=== PATIENT | male | born 1965 | race Two or more races ===

== ENCOUNTER 2016-08-28 13:32 | Emergency (ER) | payer OTHER ==
[2016-08-28 13:46] VITALS: PULSE 82; BMI 23.7
--- NOTE | 2016-08-28 13:50 | PDOC ---
History of Present Illness - General Chief Complaint: Pain, Acute Stated Complaint: Flank pain, blood in urine Time Seen by Provider: 08/28/16 13:47 History Source: Patient Exam Limitations: No Limitations - History of Present Illness Initial Comments: 50 year old male with no significant past medical history presenting with 1 week of intermittent left sided flank pain and associated blood in his urine. 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 Patent denies fever, chills, chest pain, SOB and only notices the blood in his urine following incidents of cramping. Patient last had symptoms yesterday, 4x, while at work and only came in today because he is leaving tomorrow for a two week vacation in [place]. Patient denies ever having this problem before but admitted he had an abnormal UA last year showing blood in his urine and was given a referral by his PCP (Dr. Alexander at [facility]) to be seen by a urologist, however, he never followed up. Past History - Past Medical History Allergies/Adverse Reactions: Allergies Allergy/AdvReac Type Severity Reaction Status Date / Time No Known Allergies Allergy Verified 08/28/16 13:46 Home Medications: Ambulatory Orders Naproxen [Naprosyn -] 500 mg PO BID PRN #14 tablet 08/28/16 Oxycodone HCl/Acetaminophen [Percocet 5-325 mg Tablet -] 1 tab PO TID PRN #12 tablet MDD 3 08/28/16 Other medical history: denies - Surgical History Other Surgical History: 08/28/16 15:56 denies - Psycho/Social/Smoking Cessation Hx Suicidal Ideation: No Smoking History: Never smoked Information on smoking cessation initiated: No Hx Alcohol Use: No Drug/Substance Use Hx: No Substance Use Type: None Review of Systems - Review of Systems Able to Perform ROS?: Yes Constitutional: No: Chills, Diaphoresis, Fever HEENTM: No: Recent change in vision, Ear Pain, Hearing Loss Respiratory: Yes: Cough. No: Shortness of Breath Cardiac (ROS): No: Chest Pain ABD/GI: Yes: See HPI, Abdominal cramping. No: Constipated, Diarrhea, Nausea, Vomiting : Yes: Flank Pain, Hematuria. No: Burning, Dysuria, Discharge, Frequency, Urgency Musculoskeletal: No: Back Pain, Muscle Pain Neurological: No: Headache, Dizziness All Other Systems: Reviewed and Negative *Physical Exam - Vital Signs Last Vital Signs Temp Pulse Resp BP Pulse Ox 98.1 F 82 18 134/85 100 08/28/16 13:44 08/28/16 13:44 08/28/16 13:44 08/28/16 13:44 08/28/16 13:44 ED Treatment Course - LABORATORY CBC & Chemistry Diagram: 08/28/16 14:56 08/28/16 14:56 - RADIOLOGY Radiograph Interpretation: 08/28/16 16:23 CT scan of the abdomen pelvis without oral and intravenous contrast Read By: Malcolm Chris MD IMPRESSION: 1.1 x 1 cm obstructing stone in the left renal pelvis with mild left renal hydronephrosis. There is edema/stranding around the renal pelvis and mild dilatation of the proximal left ureter without evidence of a ureteral stone. Small fat-containing umbilical hernia. Mild mesenteric stranding/edema mainly in the mid abdomen with multiple mesenteric lymph nodes in right side of the abdomen measuring up to 1.5 x 1 cm which are nonspecific. Clinical correlation is recommended to rule out mesenteric adenitis versus the possibility of lymphoproliferative disorder Enlarged prostate gland Medical Decision Making - Medical Decision Making History of left-sided intermittent, crampy flank pain and blood in urine for one week and an abnormal UA one year ago positive for hematuria concerning for nephrolithiasis or other urologic pathology. Ddx nephrolithiasis, pyelonephritis, bladder cancer Patient is 50 yo with no history of smoking and benign abdominal exam resulting in a low suspicion for bladder cancer. History most consistent with nephrolithiasis but inconsistences including pain severity, persistent hematuria for one year and intermittent course also concerning for another urologic pathology. Evaluate with basic labs: UA, CBC, CMP and followup with spiral CT if UA positive for blood. 08/28/16 15:00 Urine clear and negative for nitrates and leukocyte esterase lowering concern for UTI but positive for blood with 136 RBC/hpf with concern for nephrolithiasis. Followup with spiral CT 08/28/16 16:[address] demonstrated 1.1 x 1 cm obstructing stone in the left renal pelvis with mild left renal hydronephrosis and stranding/edema around the renal pelvis. Patient is currently pain free, urinating, with a CR of 1.0. Results were discussed with patient related to patients planned trip and urology was consulted regarding recommendations related to patient dispo. CT also significant for small fat-containing umbilical hernia and mild mesenteric stranding/edema with multiple mesenteric lymph nodes. Results were discussed with the patient and he was given copy of CT report and advised to follow up with his PCP. Patient indicated his understanding and agreement with this plan. *DC/Admit/Observation/Transfer Diagnosis at time of Disposition: Nephrolithiasis, Hematuria, Mesenteric adenitis - Discharge Dispostion Disposition: HOME Admit: No - Prescriptions Prescriptions: Naproxen [Naprosyn -] 500 mg PO BID PRN #14 tablet PRN Reason: Pain Oxycodone HCl/Acetaminophen [Percocet 5-325 mg Tablet -] 1 tab PO TID PRN #12 tablet MDD 3 PRN Reason: Severe Pain - Referrals Referrals: Shaji Mendiola MD [Primary Care Provider] - Jj Gonsalez MD [Staff Physician] - - Patient Instructions Printed Discharge Instructions: DI for Kidney Stones, Abdominal Hernia Additional Instructions: Thank you for coming to the emergency department. It has been my pleasure assisting you today. I hope you were satisfied with the care we provided you today. It is important that you follow up with the urologist (Dr. Jj Gonsalez ) tomorrow as we discussed. He asked that you call his office in the morning ( [phone]) and make an appointment to see him tomorrow. Also, please follow up with your primary care physician to discuss the other findings from the CT. - Attestations Physician Attestion: 08/28/16 17:41 I, Dr. Moises Haley, attest that this document has been prepared under my direction and personally reviewed by me in its entirety. I further attest, that it accurately reflects all work, treatment, procedures and medical decision -making performed by me.
[2016-08-28 14:34] LABS: URINE APPEARANCE CLEAR; URINE BILIRUBIN NEGATIVE (NEGATIVE); URINE COLOR LTYELLOW; URINE GLUCOSE (UA) NEGATIVE (NEGATIVE); URINE KETONE NEGATIVE (NEGATIVE); URINE LEUK ESTERASE NEGATIVE (NEGATIVE); URINE NITRITE NEGATIVE (NEGATIVE); URINE UROBILINOGEN NEGATIVE E.U./dl (0.2-1.0)
[2016-08-28 14:45] LABS: URINE BLOOD 2+ (NEGATIVE); URINE PROTEIN 1+ (NEGATIVE)
[2016-08-28 14:49] LABS: URINE MUCUS RARE; URINE RBC 136 /hpf (0-3); URINE WBC <1 /hpf (3-5)
[2016-08-28 15:32] LABS: MCH 30.5 pg (25.7-33.7); MCHC 32.7 g/dl (32.0-35.9); MEAN CELL VOLUME 93.1 fl (80-96); MEAN PLT VOLUME 7.8 fl (7.5-11.1); PLATELET COUNT 192 K/MM3 (134-434); RDW 12.5 % (11.9-15.9); WHITE BLOOD COUNT 6.9 K/mm3 (4.0-10.0)
--- NOTE | 2016-08-28 15:44 | PDOC ---
Attending Attestation - Resident Resident Name: Moises Haley - ED Attending Attestation I have performed the following: I have examined & evaluated the patient, The case was reviewed & discussed with the resident, I agree w/resident's findings & plan, Exceptions are as noted - HPI HPI: 08/28/16 15:33 50 yo M presenting to the ER with a complaint of left flank pain intermittent hematuria Pain is the worse when he is working outside He then notes left flank pain He the notes hematuria He was actually seen by his PMD for hematuria, asked to follow up but did not Pt is concerned that his pain will worsen and he has an international trip 08/28/16 15:44 - Physicial Exam PE: 08/28/16 15:44 ON examination RRR Lungs CTA Left abdominal pain No guarding No rebound - Medical Decision Making 08/28/16 15:48 Will do labs Will do CT Will do UA Will re assess 08/28/16 17:54 Laboratory Tests 08/28/16 08/28/16 08/28/16 14:20 14:56 14:56 Hgb 15.5 Hct 47.3 BUN 16 Creatinine 1.0 Urine Blood 2+ H Urine Nitrite Negative Urine RBC 136 Urine WBC <1 CT: left renal pelvis stone Rechschaffen contacted He will see this patient in the office tomorrow Pt given results - CT and labs Return to the ER for severe pain Pain medications sent to the pharmacy if pt develops pain Clinical impression: renal pelvis stone
[2016-08-28 15:59] LABS: ALBUMIN 4.1 g/dl (3.4-5.0); ALK PHOS 119 U/L (45-117); ANION GAP 5 (8-16); BILIRUBIN,TOTAL 0.5 mg/dL (0.2-1.0); CALCIUM 9.6 mg/dL (8.5-10.1); CO2 30 mmol/L (21-32); GLUCOSE,RANDOM 94 mg/dL (74-106); SGOT/AST 31 U/L (15-37); SGPT/ALT 55 U/L (12-78); TOT PROT 7.6 g/dl (6.4-8.2)
--- NOTE | 2016-08-28 17:47 | PDOC ---
History of Present Illness - General Chief Complaint: Pain, Acute Stated Complaint: Flank pain, blood in urine Time Seen by Provider: 08/28/16 13:47 History Source: Patient Exam Limitations: No Limitations - History of Present Illness Initial Comments: 08/28/16 17:56 patient is a 50 year old male with no significant past medical history presenting with one week of intermittent left sided flank pain and associated bloody urine. Pain is described as crampy, 5/10 in severity, originating in the LLQ and radiating to the back with blood presenting in the urine only following an incident of abdominal pain and otherwise clear. 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 Patient last experienced symptoms yesterday, x4, and endorsed coming into the ED today only because he is leaving in two weeks for vacation in [place] and wanted to have it checked. Patient endorses a mild residual cough from a URI a week ago but denies fever, chills, SOB and chest pain. Patient is seen by Dr. Alexander at [facility] in [place] for annual checkups and endorsed getting a urology referral a year ago for abnormal blood in his urine but denies following through with the appointment. Past History - Past Medical History Allergies/Adverse Reactions: Allergies Allergy/AdvReac Type Severity Reaction Status Date / Time No Known Allergies Allergy Verified 08/28/16 13:46 Home Medications: Ambulatory Orders Naproxen [Naprosyn -] 500 mg PO BID PRN #14 tablet 08/28/16 Oxycodone HCl/Acetaminophen [Percocet 5-325 mg Tablet -] 1 tab PO TID PRN #12 tablet MDD 3 08/28/16 Other medical history: denies - Surgical History Other Surgical History: 08/28/16 18:05 denies - Psycho/Social/Smoking Cessation Hx Suicidal Ideation: No Smoking Status: No Smoking History: Never smoked Information on smoking cessation initiated: No Hx Alcohol Use: No Drug/Substance Use Hx: No Substance Use Type: None Comments:: 08/31/16 13:31 Single, Sexually active, no history of STI Review of Systems - Review of Systems Able to Perform ROS?: Yes Is the patient limited Swiss proficient: No Constitutional: No: Chills, Fever HEENTM: No: Eye Pain, Recent change in vision, Ear Pain, Hearing Loss Respiratory: Yes: Cough. No: Shortness of Breath Cardiac (ROS): No: Chest Pain ABD/GI: Yes: Abdominal cramping. No: Diarrhea, Nausea, Vomiting : Yes: Flank Pain, Hematuria. No: Burning, Dysuria, Frequency Musculoskeletal: No: Back Pain, Muscle Pain All Other Systems: Reviewed and Negative *Physical Exam - Vital Signs Last Vital Signs Temp Pulse Resp BP Pulse Ox 98.1 F 82 18 134/85 100 08/28/16 13:44 08/28/16 13:44 08/28/16 13:44 08/28/16 13:44 08/28/16 13:44 - Physical Exam General Appearance: Yes: Appropriately Dressed. No: Apparent Distress HEENT: positive: EOMI, MURALI, Normal Voice Neck: negative: Tender, Lymphadenopathy (R), Lymphadenopathy (L) Respiratory/Chest: positive: Lungs Clear, Normal Breath Sounds. negative: Respiratory Distress Cardiovascular: positive: Regular Rhythm, Regular Rate. negative: JVD Vascular Pulses: Carotid (R): 3+, Carotid (L): 3+, Dorsalis-Pedis (R): 3+, Doralis-Pedis (L): 3+ Gastrointestinal/Abdominal: positive: Normal Bowel Sounds. negative: Tender, Pulsatile Mass Musculoskeletal: positive: Normal Inspection. negative: CVA Tenderness Extremity: positive: Normal Capillary Refill Integumentary: positive: Normal Color ED Treatment Course - LABORATORY CBC & Chemistry Diagram: 08/28/16 14:56 08/28/16 14:56 - ADDITIONAL ORDERS Additional order review: Laboratory Results 08/28/16 08/28/16 14:56 14:20 Sodium 142 Potassium 4.0 Chloride 107 Carbon Dioxide 30 Anion Gap 5 L BUN 16 Creatinine 1.0 Creat Clearance w eGFR > 60 Random Glucose 94 Calcium 9.6 Total Bilirubin 0.5 AST 31 ALT 55 Alkaline Phosphatase 119 H Total Protein 7.6 Albumin 4.1 Urine Color Ltyellow Urine Appearance Clear Urine pH 5.0 Urine Protein 1+ H Urine Glucose (UA) Negative Urine Ketones Negative Urine Blood 2+ H Urine Nitrite Negative Urine Bilirubin Negative Urine Urobilinogen Negative Ur Leukocyte Esterase Negative Urine RBC 136 Urine WBC <1 Urine Mucus Rare 08/28/16 14:56 RBC 5.08 MCV 93.1 MCHC 32.7 RDW 12.5 MPV 7.8 - RADIOLOGY Radiology Studies Ordered: Category Date Time Status SPIRAL- RENAL-STONE CT [CT] Stat CT Scan 08/28/16 15:00 Completed Radiograph Interpretation: 08/28/16 18:10 CT scan of the abdomen pelvis without oral and intravenous contrast Read By: Malcolm Chris MD IMPRESSION: 1.1 x 1 cm obstructing stone in the left renal pelvis with mild left renal hydronephrosis. There is edema/stranding around the renal pelvis and mild dilatation of the proximal left ureter without evidence of a ureteral stone. Small fat-containing umbilical hernia. Mild mesenteric stranding/edema mainly in the mid abdomen with multiple mesenteric lymph nodes in right side of the abdomen measuring up to 1.5 x 1 cm which are nonspecific. Clinical correlation is recommended to rule out mesenteric adenitis versus the possibility of lymphoproliferative disorder. Enlarged prostate gland. 08/31/16 13:44 Medical Decision Making - Medical Decision Making 08/28/16 17:45 Patient presenting with a history of intermittent flank pain and hematurea for one week and an abnormal UA one year ago most consistent for nephrolithiasis. Ddx includes aortic aneurism, GI obstruction, obstructive hydrolithias, pyelonephritis, bladder carcinoma, and nephroliathiasis. Patient is 50 years old with no history of smoking lowering suspicion for carcinoma. History and vital signs not concerning for infection. No tenderness or palpable mass on physical exam and location of pain less concerning for obstruction or aneurism. The history and physical exam are most consistent for nephrolithiasis but with some inconsistencies. Evaluate with UA and a follow up helical CT if UA positive for blood. UA negative for nitrates and leukocyte esterase lowering the suspicion for infection but positive for blood with 137 RBC/hpf increasing the likely-bautista of nephrolithiasis or other urilogic pathology supporting helical CT for additional evaluation. CT significant for 1.1 x 1 cm obstructing stone in the left renal pelvis with mild left renal hydronephrosis. Consult urology. Dr. Bai was paged @ 16:08 and 16:47 and the manager membership eventually reached Dr. Jj Gonsalez who agreed to see the patient in his office in the morning. Discussed the disgnosis, labs and CT results with the patient who agreed with the plan to followup with Dr. Gonsalez in the morning for evaluation of his kidney stone and his PCP as soon as possible to discuss the other findings on the CT. Patient was given a copy of the CT report and confirmed that all of his questions had been answered. *DC/Admit/Observation/Transfer Diagnosis at time of Disposition: Nephrolithiasis, Hematuria, Mesenteric adenitis - Discharge Dispostion Disposition: HOME - Prescriptions Prescriptions: Naproxen [Naprosyn -] 500 mg PO BID PRN #14 tablet PRN Reason: Pain Oxycodone HCl/Acetaminophen [Percocet 5-325 mg Tablet -] 1 tab PO TID PRN #12 tablet MDD 3 PRN Reason: Severe Pain - Referrals Referrals: Jj Gonsalez MD [Staff Physician] - Shaji Mendiola MD [Primary Care Provider] - - Patient Instructions Printed Discharge Instructions: DI for Kidney Stones, Abdominal Hernia Additional Instructions: Thank you for coming to the emergency department. It has been my pleasure assisting you today. I hope you were satisfied with the care we provided you today. It is important that you follow up with the urologist (Dr. Jj Gonsalez ) tomorrow as we discussed. He asked that you call his office in the morning ( [phone]) and make an appointment to see him tomorrow. Also, please follow up with your primary care physician to discuss the other findings from the CT. - Post Discharge Activity - Attestations Physician Attestion: 08/28/16 17:45 I, Dr. Moises Haley, attest that this document has been prepared under my direction and personally reviewed by me in its entirety. I further attest, that it accurately reflects all work, treatment, procedures and medical decision -making performed by me.
[2016-08-28 17:52] VITALS: BP 138/78; TEMP 98.2
== END 2016-08-28 17:30 | disposition home or self-care (01) ==
LOC: JER 13:32
DX: N13.2 Hydronephrosis with renal and ureteral calculous obstruction (principal); I88.0 Nonspecific mesenteric lymphadenitis
CPT/HCPCS: 36415; 74176; 80053; 81003; 81015; 85027; 99283-25

== ENCOUNTER 2018-07-28 11:24 | Day surgery (SDC) | payer OTHER | END 2018-07-28 15:58 | disposition home or self-care (01) | LOC: JASU-SURG 11:24 ==

== ENCOUNTER 2019-10-05 05:31 | Day surgery (SDC) | payer OTHER ==
[2019-10-01 10:11] VITALS: BMI 24.0
[2019-10-05] MEDS ORDERED: MIDAZOLAM HCL 2 MG/2 ML SINGLE DOSE VIAL ONE (09:21)
[2019-10-05] MEDS ORDERED: PROPOFOL 20 ML ONE (09:21)
[2019-10-05] MEDS ORDERED: DEXAMETHASONE SOD PHOSPHATE 4 MG/1 ML VIAL ONE (09:40)
[2019-10-05] MEDS ORDERED: ESMOLOL HCL 100,000 MCG/10 ML VIAL ONE (09:42)
[2019-10-05] MEDS ORDERED: METOPROLOL TARTRATE 5 MG/5 ML VIAL ONE (09:42)
[2019-10-05] MEDS ORDERED: PHENYLEPHRINE HCL 10 MG/1 ML SINGLE DOSE VIAL ONE (09:45)
[2019-10-05] MEDS ORDERED: IOHEXOL 300 MG/ML INFUS..BTL IJ ONE ×2 (09:50)
--- NOTE | 2019-10-05 10:23 | OP ---
Operative Note - Note: Operative Date: 10/05/19 Pre-Operative Diagnosis: left ureteral stone Operation: cystoscopy/left retrograde pyelogram/left ureteroscopic laser lithotripsy/left ureteroscopic stone basketing/left ureteral stent placement Findings: 8+ mm left ureteral stone Post-Operative Diagnosis: Same as Pre-op Surgeon: Jarrod Rodriguez Anesthesia: General Specimens Removed: left ureteral stone Drains & Tubes with Location: 08/20 left ureteral stent Operative Report Dictated: Yes
[2019-10-05] MEDS ORDERED: oxyCODONE HCL 5 MG TABLET PO PRN (10:37)
[2019-10-05] MEDS ORDERED: ONDANSETRON 4 MG/2 ML VIAL IVPUSH PRN (10:37)
[2019-10-05] MEDS ORDERED: LACTATED RINGERS SOLUTION 1,000 ML IV SCH (10:45)
--- NOTE | 2019-10-05 11:37 | EKG ---
Test Reason : Blood Pressure : / mmHG Vent. Rate : 084 BPM Atrial Rate : 065 BPM P-R Int : 158 ms QRS Dur : 146 ms QT Int : 450 ms P-R-T Axes : 055 -39 -08 degrees QTc Int : 531 ms SINUS RHYTHM WITH PREMATURE ATRIAL COMPLEXES LEFT AXIS DEVIATION /LAFB RIGHT BUNDLE BRANCH BLOCK VOLTAGE CRITERIA FOR LEFT VENTRICULAR HYPERTROPHY ABNORMAL ECG NO PREVIOUS ECGS AVAILABLE Confirmed by Mis Aguilar ([id number]) on 10/05/2019 11:36:46 AM Referred By: Jarrod Rodriguez Confirmed By:Mis Aguilar
[2019-10-05 12:42] VITALS: PULSE 68; TEMP 97.7
[2019-10-05 13:36] VITALS: BP 140/98
--- NOTE | 2019-10-05 18:37 | OP ---
DATE OF OPERATION: 10/05/2019 PREOPERATIVE DIAGNOSIS: Left ureteral stone. POSTOPERATIVE DIAGNOSIS: Left ureteral stone. PROCEDURE: Cystoscopy, left retrograde pyelogram, left ureteroscopic laser lithotripsy, left ureteroscopic stone basketing, and left ureteral stent placement. ATTENDING: Stephanie Rodriguez MD. ANESTHESIA: Fractional. DESCRIPTION OF PROCEDURE: The patient was brought in the operating room, placed in a supine position on the operating room table. The patient was noted to have an 8+ mm distal left ureteral stone on the CAT scan performed 1 week prior to the operation. A risks and benefits had been reviewed with the patient. Patient understands these risks and benefits and chooses to undergo the procedure. The patient was brought in the operating room, placed in a supine position on the operating room table. The anesthesia and preoperative antibiotics were then administered. The patient was then prepped and draped in the usual sterile manner and placed in the dorsal lithotomy position. At this point, the patient underwent a cystoscopy. No evidence of stones were noted within the bladder. There were also no neoplasms. A retrograde pyelogram shows an 8+ mm defect in the distal left ureter. A wire is passed proximally. At this point, ureteroscopy was performed. A holmium laser was utilized, and the holmium was used to fragment the stone. Also the fragments were removed and sent for analysis at the pathology department. There were no complications were noted. The patient tolerated the procedure very well. DISPOSITION: The patient was sent to the recovery room. STEPHANIE WU M.D. [id number]
--- NOTE | 2019-10-06 14:01 | PATH ---
Surgical Pathology Report Patient Name: JUNIOR ANUP Med. Rec. #: [id number] /Age/Gender: 1965 (Age: 54) / M Account: [id number] Location: [facility] SURGICAL Taken: 10/05/2019 Received: 10/05/2019 Reported: 10/06/2019 Physicians: Jarrod Rodriguez Specimen(s) Received LEFT RENAL STONE Clinical History Left renal stone Final Diagnosis RENAL STONE, LEFT, LASER LITHOTRIPSY: RENAL CALCULI. MACROSCOPIC DIAGNOSIS. Electronically Signed Sarahy Still M.D. Gross Description Received fresh labeled "left renal stone," is a 0.5 cm in greatest dimension jacobs, irregular calculus which is sent for chemical analysis. /10/05/2019 saudi/10/05/2019
[2019-10-17 15:26] LABS: SIZE 4X4
[2019-10-17 15:27] LABS: CA OXALATE MONOHYDR. 20; PHOTO SEE FILE; WEIGHT 32
== END 2019-10-05 13:38 | disposition home or self-care (01) ==
LOC: JASU-SURG 05:31
PROVIDERS: ATTEND Urology
PROC: BT1FYZZ Fluoroscopy of Left Kidney, Ureter and Bladder using Other Contrast (ICD-10-PCS; 2019-10-05)
PROC: 0TC78ZZ Extirpation of Matter from Left Ureter, Via Natural or Artificial Opening Endoscopic (ICD-10-PCS; principal; 2019-10-05 09:00)
PROC: 0T778DZ Dilation of Left Ureter with Intraluminal Device, Via Natural or Artificial Opening Endoscopic (ICD-10-PCS; 2019-10-05 09:00)
DX: N20.1 Calculus of ureter (principal)
CPT/HCPCS: 36415; 76000-TC-FY; 82360; 88300-TC; 93005; 93010; 94760

== ENCOUNTER 2020-03-01 17:10 | Emergency (ER) | payer OTHER ==
[2020-03-01 17:57] VITALS: BMI 261.8
[2020-03-01] MEDS ORDERED: ASPIRIN 81 MG CHEWABLE TABLETS PO ONE (18:49)
[2020-03-01] MEDS ORDERED: ASPIRIN 81 MG CHEWABLE TABLETS ONE (19:35)
[2020-03-01 19:44] LABS: BASO % 0.3 % (0-2.0); EOS % 1.9 % (0-4.5); HEMOGLOBIN 14.9 GM/dL (11.7-16.9); MCH 30.5 pg (25.7-33.7); MEAN CELL VOLUME 92.3 fl (80-96); MEAN PLT VOLUME 7.7 fl (7.5-11.1); MONO % 6.8 % (3.8-10.2); PLATELET COUNT 220 K/MM3 (134-434); RBC 4.87 M/mm3 (4.00-5.60); RDW 12.4 % (11.9-15.9)
[2020-03-01 20:00] LABS: INR 1.03 (0.83-1.09); PROTHROMBIN TIME (PATIENT) 12.5 SEC (9.7-13.0)
[2020-03-01] MEDS ORDERED: KETOROLAC TROMETHAMINE 30 MG/1 ML VIAL IM ONE (20:00)
[2020-03-01 20:02] LABS: ACTIVATED PTT 33.7 SECONDS (25.2-36.5)
[2020-03-01] MEDS ORDERED: KETOROLAC TROMETHAMINE 30 MG/1 ML VIAL ONE (20:06)
[2020-03-01 20:09] LABS: CHLORIDE 105 mmol/L (98-107); SODIUM 138 mmol/L (136-145)
[2020-03-01 20:11] LABS: ANION GAP 4 MMOL/L (8-16); BLOOD UREA NITROGEN 13.1 mg/dL (7-18); CALCIUM 9.3 mg/dL (8.5-10.1); CO2 30 mmol/L (21-32); GLUCOSE,RANDOM 86 mg/dL (74-106)
[2020-03-01 20:12] LABS: MAGNESIUM 2.3 mg/dL (1.8-2.4)
[2020-03-01 20:14] LABS: CREATININE 0.9 mg/dL (0.55-1.3); SGOT/AST 22 U/L (15-37); SGPT/ALT 49 U/L (13-61)
[2020-03-01 20:16] LABS: BILIRUBIN,TOTAL 0.4 mg/dL (0.2-1); TOT PROT 7.6 g/dl (6.4-8.2)
[2020-03-01 20:17] LABS: ALK PHOS 151 U/L (45-117)
[2020-03-01 20:45] VITALS: BP 150/88; PULSE 82; TEMP 98.8
== END 2020-03-01 20:45 | disposition home or self-care (01) ==
LOC: JER 17:10
PROC: 3E0233Z Introduction of Anti-inflammatory into Muscle, Percutaneous Approach (ICD-10-PCS; principal; 2020-03-01)
DX: R07.9 Chest pain, unspecified (principal)
CPT/HCPCS: 36415; 71046-TC-FY; 80053; 82550; 82553; 83735; 84484; 85025; 85610; 85730; 93005; 93010; 99285-25